=== PATIENT | female | born 1985 | race African-American/Black ===

== ENCOUNTER 2017-01-30 05:12 | Day surgery (SDC) | payer OTHER ==
[2017-01-23 19:15] VITALS: BMI 27.8
[2017-01-30] MEDS ORDERED: MIDAZOLAM HCL 2 MG/2 ML SINGLE DOSE VIAL ONE ×2 (13:03→13:45)
[2017-01-30] MEDS ORDERED: ceFAZolin SODIUM 1 GM VIAL IVPB ONE (13:50)
[2017-01-30] MEDS ORDERED: IBUPROFEN 400 MG TABLET (FP) PO PRN (14:13)
[2017-01-30] MEDS ORDERED: ACETAMINOPHEN 325 MG TABLET (FP) PO PRN (14:13)
[2017-01-30] MEDS ORDERED: ONDANSETRON 4 MG/2 ML VIAL IVPB PRN (14:13)
[2017-01-30] MEDS ORDERED: LACTATED RINGERS SOLUTION 1,000 ML IV SCH ×2 (14:15→14:30)
[2017-01-30] MEDS ORDERED: PROMETHAZINE HCL 25 MG/1 ML VIAL IVPUSH PRN (14:19)
[2017-01-30] MEDS ORDERED: ONDANSETRON 4 MG/2 ML VIAL IVPUSH PRN (14:19)
--- NOTE | 2017-01-30 14:23 | HP ---
Past Medical History - Primary Care Physician PCP:: Will Recinos - Admission Chief Complaint: 31yo P1 with incomplete Ab admitted for D&C. 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: Alzheimer's, CVA, Dementia, Migraine, Multiple Sclerosis, Peripheral Neuropathy, Parkinson's, Seizure, Syncope, TIA, Vertigo, Other Cardiovascular: Yes: Other (Tachycardia) Pulmonary: No: Asthma, Bronchitis, Cancer, COPD, O2 Dependent, Pneumonia, Previously Intubated, Pulmonary Embolus, Pulmonary Fibrosis, Sleep Apnea, Other Gastrointestinal: Yes: Gastritis, GERD Hepatobiliary: No: Cirrhosis, Cholelithiasis, Cholecystitis, Choledocholithiasis , Hepatitis A, Hepatitis B, Hepatitis C, Other Renal/: No: Renal Failure, Renal Inusuff, BPH, Cancer, Hematuria, Hemodialysis , Neurogenic Bladder, Renal Calculi, UTI, Other Reproductive: No: Ectopic , Endometriosis, Fibroids, PID, Polycystic Ovary Syndrome, Postmenopausal, Other ...Para: 1 ...Term: 1 ...Spon : 1 ...Induced : 1 Heme/Onc: No: Anemia, B12 Deficiency, Bleeding Disorder, Cancer, Current Chemotherapy, Current Radiation Therapy, Hemochromatosis, Hypercoaguable State, Myeloproliferative Synd, Sickle Cell Disease, Sickle Cell Trait, Thrombocytopenia, Other Infectious Disease: No: AIDS, C-Diff, Herpes Zoster, HIV, MRSA, STD's, Tuberculosis, VREF, Other Psych: Yes: Panic Musculoskeletal: No: Bursitis, Chronic low back pain, Hemiparesis, Hemiplegia, Osteoarthritis, Paraplegia, Other Rheumatology: No: Fibromyalgia, Gout, Lupus, Rheumatoid Arthritis, Sarcoidosis, Vasculitis, Other ENT: No: Allergic Rhinitis, Sinusitis, Other Endocrine: No: Vinton's Disease, Nitesh's Disease, Diabetes Insipidus, Diabetes Mellitus, Hyperparathyroidism, Hyperthyroidism, Hypothyroidism, Osteopenia, SIADH, Other Dermatology: No: Basal Cell, Cellulitis, Eczema, Melanoma, Psoriasis, Squamous Cell, Other - Past Surgical History Past Surgical History: Yes: None Hx Myomectomy: No Hx Transabdominal Cerclage: No - Smoking History Smoking history: Never smoked Have you smoked in the past 12 months: No - Alcohol/Substance Use Hx Alcohol Use: No - Social History Usual Living Arrangement: Yes: With Child ADL: Independent 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, 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 [employer] History of Recent Travel: No Home Medications - Allergies Allergies/Adverse Reactions: Allergies Allergy/AdvReac Type Severity Reaction Status Date / Time epinephrine AdvReac Severe Verified 01/30/17 11:41 - Home Medications Home Medications: Ambulatory Orders NK [No Known Home Medication] 01/23/17 Family Disease History - Family Disease History Family Disease History: Other: Grandparent (HTN), Father (Renal stones) Review of Systems - Review of Systems Constitutional: reports: No Symptoms Eyes: reports: No Symptoms HENT: reports: No Symptoms Neck: reports: No Symptoms Cardiovascular: reports: No Symptoms Respiratory: reports: No Symptoms Gastrointestinal: reports: No Symptoms Genitourinary: reports: No Symptoms Breasts: reports: No Symptoms Reported Musculoskeletal: reports: No Symptoms Integumentary: reports: No Symptoms Neurological: reports: No Symptoms Endocrine: reports: No Symptoms Hematology/Lymphatic: reports: No Symptoms Psychiatric: reports: No Symptoms Pain Intensity: 0 Physical Exam-IRONWORKER APPRENTICE Vital Signs: Vital Signs Temperature 98.9 F 01/30/17 11:42 Pulse Rate 95 H 01/30/17 11:42 Respiratory Rate 18 01/30/17 11:42 Blood Pressure 111/66 01/30/17 11:42 O2 Sat by Pulse Oximetry (%) 100 01/30/17 11:45 Constitutional: Yes: Well Nourished, No Distress, Calm Eyes: Yes: WNL, Conjunctiva Clear HENT: Yes: WNL, Atraumatic, Normocephalic Neck: Yes: WNL, Supple, Trachea Midline Cardiovascular: Yes: WNL, Regular Rate and Rhythm Respiratory: Yes: WNL, Regular, CTA Bilaterally Gastrointestinal: Yes: WNL, Normal Bowel Sounds, Soft ...Rectal Exam: Yes: WNL Renal/: Yes: WNL Pelvis: Yes: WNL External Genitalia: Yes: Normal Internal Exam Deferred: No Vaginal Exam: Yes: Normal Cervix: Yes: Normal, Bleeding Uterus: Yes: Normal Musculoskeletal: Yes: WNL Extremities: Yes: WNL Edema: No Integumentary: Yes: WNL Neurological: Yes: WNL, Alert, Oriented ...Motor Strength: WNL Psychiatric: Yes: WNL, Alert, Oriented Imaging - Results Ultrasound: Report Reviewed Assessment/Plan 31yo P1 with incomplete Ab admitted for D&C. We had a long discussion about the risks, benefits, and alternatives of surgery. I explained the risks of infection , bleeding, scarring, amenorrhea, Asherman's syndrome, infertility, perforation , need for additional surgery to treat any complications, etc. The pt declined expectant management of missed ab or Cytotec indx. She requested to proceed with surgery.
--- NOTE | 2017-01-30 14:33 | OP ---
Operative Note - Note: Operative Date: 01/30/17 Pre-Operative Diagnosis: Incomplete Ab Operation: Treatment of incomplete Ab, completed surgically. Findings: POC Post-Operative Diagnosis: Same as Pre-op Surgeon: Will Recinos Anesthesiologist/REAL ESTATE PROCESSOR: James Cedeno Anesthesia: General Specimens Removed: POC Estimated Blood Loss (mls): 30 Blood Volume Replaced (mls): 0 Fluid Volume Replaced (mls): 400 Operative Report Dictated: Yes
[2017-01-30 15:54] VITALS: BP 110/66; PULSE 94; TEMP 98.6
--- NOTE | 2017-01-30 16:59 | OP ---
DATE OF OPERATION: 01/30/2017 PREOPERATIVE DIAGNOSIS: Incomplete . POSTOPERATIVE DIAGNOSIS: Incomplete . PROCEDURE: Treatment of incomplete completed surgically, suction dilation and curettage. SURGEON: Will Recinos MD ANESTHESIA: General. ANESTHESIOLOGIST: James Cedeno MD COMPLICATIONS: None. PATHOLOGY: Products of conception. INTRAVENOUS FLUIDS: 400 mL. ESTIMATED BLOOD LOSS: 30 mL. FINDINGS: Examination under anesthesia revealed a small anteverted uterus consistent with approximately 6 to 7 weeks of gestation. Products of conception were noted at suction curettage. No retained products of conception were noted at the end of the procedure. DESCRIPTION OF PROCEDURE: The patient was met preoperatively. Risks, benefits, and alternatives of surgery were discussed in detail. All questions were answered. The patient was then brought to the operating room with the IV running. She was placed on the surgical table in the supine position. The general anesthesia was achieved without difficulty. The patient was then placed in a dorsal lithotomy position using adjustable Cornelio stirrups. She was examined under anesthesia with the findings as described above. The time-out procedure was conducted as per standard protocol. The patient was then prepped and draped in the usual sterile fashion. A sterile speculum was introduced inside the vagina with good visualization of the cervix. The cervix was dilated to accommodate size 21 Nino dilator. A suction curette was then gently introduced inside the uterine cavity. The products of conception were removed using suction curettage. No retained products of conception were noted at the end of the procedure. All of the instruments were removed from the patient. Good hemostasis was noted. Sponge, laparotomy, and instrument counts were correct. The patient was transferred to the recovery room awake and in stable condition. Rebecca [id number]
--- NOTE | 2017-02-05 09:21 | PATH ---
Surgical Pathology Report Patient Name: BORIS GONZALEZ [facility]. Rec. #: [id number] /Age/Gender: 1985 (Age: 31) / F Account: [id number] Location: [facility] Taken: 01/30/2017 Received: 01/31/2017 Reported: 02/05/2017 Physicians: Will Recinos M.D. Specimen(s) Received PRODUCTS OF CONCEPTION Clinical History Missed Final Diagnosis UTERINE CONTENTS, DILATATION AND CURETTAGE: CHORIONIC VILLI AND DECIDUA CONSISTENT WITH PRODUCTS OF CONCEPTION. Electronically Signed Kimberli Long M.D. Gross Description Received in formalin labeled "products of conception," is a 9.5 x 8.0 x 1.0 cm aggregate of hardin soft tissue fragments. Villous tissue is identified. No definite somatic tissue is identified. A service support representative portion is submitted in one cassette. /01/31/201701/31/2017
== END 2017-01-30 16:03 | disposition home or self-care (01) ==
LOC: JASU-SURG 05:12
PROVIDERS: ATTEND Obstetrics & Gynecology
PROC: 10D17ZZ Extraction of Products of Conception, Retained, Via Natural or Artificial Opening (ICD-10-PCS; principal; 2017-01-30 13:00)
DX: O03.4 Incomplete spontaneous abortion without complication (principal); Z3A.01 Less than 8 weeks gestation of pregnancy
CPT/HCPCS: 86850; 86900; 86901; 88305-TC; 94760

== ENCOUNTER 2022-11-23 06:50 | Inpatient (IN) | payer OTHER ==
[2022-11-23 08:11] LABS: BASO % 0.9 % (0-2.0); EOS % 1.7 % (0-4.5); HEMATOCRIT 35.1 % (32.4-45.2); LYMPH % 23.8 % (8-40); MCH 28.4 pg (25.7-33.7); MCHC 31.5 g/dl (32.0-36.0); MEAN CELL VOLUME 90.1 fl (80-96); MEAN PLT VOLUME 11.7 fl (7.5-11.1); MONO % 10.4 % (3.8-10.2); NEUT % 63.2 % (42.8-82.8); PLATELET COUNT 157 10^3/uL (134-434); RBC 3.89 M/mm3 (3.60-5.2); RDW 15.4 % (11.6-15.6); WHITE BLOOD COUNT 5.8 K/mm3 (4.0-10.0)
[2022-11-23 08:39] VITALS: BMI 35.5
[2022-11-23] MEDS ORDERED: ELECTROLYTE-148 SOLN 1,000 ML IV SCH ×2 (09:15)
[2022-11-23] MEDS ORDERED: OXYTOCIN 30 UNITS in 0.9% NS 30 UNIT/500 ML INFUS.BAG IVPB SCH (09:15)
[2022-11-23 09:20] LABS: INR 1.05 (0.83-1.09)
[2022-11-23 09:23] LABS: ACTIVATED PTT 29.7 SECONDS (25.2-36.5); PROTHROMBIN TIME (PATIENT) 12.2 SEC (9.7-13.0)
[2022-11-23 09:25] LABS: CALCIUM 8.7 mg/dL (8.5-10.1); POTASSIUM 3.9 mmol/L (3.5-5.1)
[2022-11-23 09:27] LABS: BLOOD UREA NITROGEN 9.8 mg/dL (7-18)
[2022-11-23 09:30] LABS: CREATININE 0.8 mg/dL (0.55-1.3)
[2022-11-23 11:36] LABS: EPI CELLS >36 /uL (0-25.1); HYALINE CASTS 2 /uL (0-3.1); PH,URINE 6.5 (5.0-8.0); URINE APPEARANCE CLEAR; URINE BACTERIA 1329 /uL (0-1359); URINE BILIRUBIN NEGATIVE (NEGATIVE); URINE COLOR YELLOW; URINE GLUCOSE (UA) NEGATIVE (NEGATIVE); URINE KETONE 1+ (NEGATIVE); URINE LEUK ESTERASE TRACE (NEGATIVE); URINE NITRITE NEGATIVE (NEGATIVE); URINE PROTEIN NEGATIVE (NEGATIVE); URINE RBC 14 /uL (0-23.9); URINE WBC 73 /uL (0-25.8)
[2022-11-23 11:39] LABS: SYPHILIS W/ RPR CONF NON-REACTIVE (NONREACTIVE)
[2022-11-23 12:08] LABS: HIV INTERPRETATION NEGATIVE (NEGATIVE)
[2022-11-23] MEDS: valACYclovir HCL 500 MG TABLET (FP) PO SCH (12:20)
[2022-11-23] MEDS ORDERED: PRENATAL VITAMINS W/ FOLIC ACID TABLET (FP) PO ONE (12:25)
[2022-11-23] MEDS: PRENATAL VITAMINS W/ FOLIC ACID TABLET (FP) PO SCH (12:30)
[2022-11-23] MEDS ORDERED: FENTANYL/BUPIVACAINE/NS/PF - PCEA - 50 ML DISP.SYRIN EP ONE (19:05)
[2022-11-23] MEDS ORDERED: OXYTOCIN 20 UNITS in 0.9% NS 20 UNIT/1,000 ML INFUS.BAG IV ONE (21:57)
[2022-11-23] MEDS ORDERED: IBUPROFEN 600 MG TABLET (FP) PO PRN (22:18)
[2022-11-23] MEDS ORDERED: BENZOCAINE 20% 57 GM BOTTLE TP PRN (22:18)
[2022-11-23] MEDS ORDERED: oxyCODONE HCL 5 MG TABLET PO PRN (22:18)
[2022-11-23] MEDS ORDERED: METHYLERGONOVINE MALEATE 0.2 MG/1 ML AMP IM PRN (22:18)
[2022-11-23] MEDS ORDERED: BENZOCAINE 28 GM HEMORRHOIDAL OINTMENT TP PRN (22:18)
[2022-11-23] MEDS ORDERED: BISACODYL 10 MG SUPP.RECT RC PRN (22:18)
[2022-11-23] MEDS ORDERED: WITCH HAZEL 50% (TUCKS) 40 PAD/JAR PAD TP PRN (22:18)
[2022-11-23] MEDS ORDERED: ACETAMINOPHEN 325 MG TABLET (FP) PO PRN (22:18)
[2022-11-23] MEDS ORDERED: OXYTOCIN 20 UNITS in 0.9% NS 20 UNIT/1,000 ML INFUS.BAG IV SCH (22:30)
[2022-11-23 22:39] LABS: CORD BASE EXCESS -2.5 mmol/L (0-2); CORD BASE EXCESS -2.8 mmol/L (0-2); CORD HCO3 22.5 mmHg (20-29); CORD HCO3 22.9 mmHg (20-29); CORD PCO2 41.7 mmHg (30-78); CORD pH 7.357 (7.14-7.44); CORD pH 7.358 (7.14-7.44)
[2022-11-24] MEDS ORDERED: NALOXONE HCL 0.4 MG/ML VIAL IVPUSH PRN (00:21)
[2022-11-24] MEDS ORDERED: FENTANYL/BUPIVACAINE/NS/PF - PCEA - 50 ML DISP.SYRIN EP SCH (00:30)
[2022-11-24 08:29] LABS: BASO % 0.2 % (0-2.0); EOS % 0.1 % (0-4.5); HEMATOCRIT 31.2 % (32.4-45.2); HEMOGLOBIN 10.1 GM/dL (10.7-15.3); MCH 28.4 pg (25.7-33.7); MCHC 32.3 g/dl (32.0-36.0); MEAN CELL VOLUME 88.1 fl (80-96); MEAN PLT VOLUME 11.7 fl (7.5-11.1); MONO % 7.5 % (3.8-10.2); NEUT % 79.2 % (42.8-82.8); PLATELET COUNT 146 10^3/uL (134-434); RBC 3.54 M/mm3 (3.60-5.2); RDW 15.4 % (11.6-15.6); WHITE BLOOD COUNT 14.7 K/mm3 (4.0-10.0)
[2022-11-24 09:30] VITALS: RESP 18
[2022-11-24] MEDS: valACYclovir HCL 500 MG TABLET (FP) PO SCH (09:47)
[2022-11-24] MEDS: PRENATAL VITAMINS W/ FOLIC ACID TABLET (FP) PO SCH (09:47)
[2022-11-24] MEDS ORDERED: SENNOSIDES/DOCUSATE COMBO (SENNA PLUS) TABLET (UD) PO PRN (22:00)
[2022-11-25 08:54] VITALS: BP 119/77; PULSE 99; TEMP 98.8
[2022-11-25] MEDS: valACYclovir HCL 500 MG TABLET (FP) PO SCH (09:09)
[2022-11-25] MEDS: PRENATAL VITAMINS W/ FOLIC ACID TABLET (FP) PO SCH (09:09)
[2022-11-25] MEDS ORDERED: PANTOPRAZOLE 40 MG TABLET PO ONE (14:00)
== END 2022-11-25 21:35 | disposition home or self-care (01) | DRG 560 ==
LOC: JLDR 06:50 → J3W 11-24 00:52
PROVIDERS: ADMIT Obstetrics & Gynecology; ATTEND Obstetrics & Gynecology
PROC: 10E0XZZ Delivery of Products of Conception, External Approach (ICD-10-PCS; principal; 2022-11-23)
DX: O75.89 Other specified complications of labor and delivery (principal); Z3A.40 40 weeks gestation of pregnancy; K21.9 Gastro-esophageal reflux disease without esophagitis; Z37.0 Single live birth
CPT/HCPCS: 36415; 36600; 80048; 81003; 82803; 85025; 85610; 85730; 86780; 86850; 86900; 86901; 87389